=== PATIENT | female | born 1950 | race Caucasian/White ===

== ENCOUNTER 2019-10-25 17:08 | Emergency (ER) | payer MEDICARE, MEDICAID ==
[~2019-10-25] VITALS: Ht 167.6 cm; Wt 51.0 kg
[~2019-10-25 17:08] MED LIST: DOCU100C41 PO; IBUP-1985 PO; QUET-1 PO
[2019-10-25 17:13] VITALS: BP 136/80
[2019-10-25] MEDS ORDERED: ketorolac tromethamine 15mg/ml inj. IM ONE (18:15)
[2019-10-25] MEDS ORDERED: PENI500T2 PO (18:19)
[2019-10-25] MEDS ORDERED: CYCL-1 PO (18:19)
[2019-10-25] MEDS ORDERED: IBUP-1984 PO (18:19)
== END 2019-10-25 18:49 | disposition home or self-care (01) ==
LOC: ER 17:08
DX: F41.9 Anxiety disorder, unspecified (principal); K08.89 Other specified disorders of teeth and supporting structures; G89.29 Other chronic pain; M54.6 Pain in thoracic spine; M54.5 Low back pain; K02.9 Dental caries, unspecified; E11.9 Type 2 diabetes mellitus without complications; M19.90 Unspecified osteoarthritis, unspecified site; Z86.14 Personal history of Methicillin resistant Staphylococcus aureus infection; Z90.710 Acquired absence of both cervix and uterus; Z88.8 Allergy status to other drugs, medicaments and biological substances
CPT/HCPCS: 96372; 99284; J1885